=== PATIENT | female | born 1960 | race Caucasian/White ===

== ENCOUNTER 2019-06-13 15:15 | Emergency (ER) | payer MEDICAID, OTHER, SELFPAY ==
[~2019-06-13] VITALS: Ht 170.2 cm; Wt 66.4 kg
--- NOTE | 2019-06-13 15:50 | NUR ---
PT WHEELED TO ED ROOM 01 FROM LOBBY AT THIS TIME.
--- NOTE | 2019-06-13 17:00 | NUR ---
PT RESTING IN BED. NAD. VSS.
[2019-06-13] MEDS ORDERED: MAGNESIUM CITRATE 300ML ORAL SOL ONE (17:29)
[2019-06-13] MEDS ORDERED: MAGNESIUM CITRATE 300ML ORAL SOL PO ONE (17:30)
[2019-06-13 17:40] LABS: BASOPHILS # (AUTO) 0.02 x10^3/uL (0-0.1); BASOPHILS % (AUTO) 0 % (0-1); EOSINOPHILS # (AUTO) 0.16 x10^3/uL (0-0.4); EOSINOPHILS % (AUTO) 2 % (1-7); LYMPHOCYTES # (AUTO) 1.81 x10^3/uL (1-3.4); LYMPHOCYTES % (AUTO) 18 % (22-44); MD NO; MEAN CORPUSCULAR HEMOGLOBIN 29.5 pg (27.0-34.8); MEAN CORPUSCULAR HGB CONC 32.6 g/dL (32.4-35.8); MEAN CORPUSCULAR VOLUME 90.7 fL (80-100); MEAN PLATELET VOLUME 8.5 fL (7.4-10.4); MONOCYTES # (AUTO) 1.16 x10^3/uL (0.2-0.8); MONOCYTES % (AUTO) 12 % (2-9); NEUTROPHILS % (AUTO) 69 % (42-75); PLATELET COUNT 240 x10^3/uL (130-400); RED BLOOD COUNT 4.68 x10^6/uL (3.82-5.3); RED CELL DISTRIBUTION WIDTH 13.4 % (9.6-15.2)
[2019-06-13 17:46] LABS: ALANINE AMINOTRANSFERASE 23 U/L (12-78); ALBUMIN 2.9 g/dL (3.4-5.0); ANION GAP 6 mmol/L (5-15); CALCIUM 8.5 mg/dL (8.5-10.1); CHLORIDE 105 mmol/L (98-107)
[2019-06-13 17:48] LABS: ALKALINE PHOSPHATASE 84 U/L (45-117); BILIRUBIN,TOTAL 0.3 mg/dL (0.2-1.0); TOTAL PROTEIN 7.2 g/dL (6.4-8.2)
--- NOTE | 2019-06-13 17:57 | NUR ---
PT GIVEN [facility] AND SHOWN WHERE THE RESTROOM IS LOCATED. VSS. NAD. FRIEND WAS AT BEDSIDE BUT STEPPED OUT FOR A FEW MINUTES.
--- NOTE | 2019-06-13 18:36 | NUR ---
PT REPORTS SHE HAS NOT HAD A BM FROM THE [facility]. PT DOESN'T FEEL THE URGE TO GO TO THE BATHROOM AT THIS TIME. VSS. NAD. PT IS DOZING INTERMITTENTLY.
[2019-06-13] MEDS ORDERED: IBUPROFEN 600 MG TABLET PO ONE (19:00)
--- NOTE | 2019-06-13 19:11 | NUR ---
REPORT GIVEN TO PM NURSE.
--- NOTE | 2019-06-13 19:14 | NUR ---
Assumed care of pt, bedside report recieved, pt back from CT, resting on gurney, awake, alert, vitals stable. Waiting for results.
[2019-06-13] MEDS ORDERED: CEFTRIAXONE PMX 1GM/50ML 50 ML IVPB ONE (19:30)
[2019-06-13] MEDS ORDERED: CEFTRIAXONE PMX 1GM/50ML 50 ML ONE (19:30)
[2019-06-13] MEDS ORDERED: IBUPROFEN 600 MG TABLET ONE (19:31)
--- NOTE | 2019-06-13 19:41 | NUR ---
Pt medicated for pain, [place] 07/07, tolerates wll, IV abx infusing. Vitals stable.
[2019-06-13] MEDS ORDERED: SODIUM CHLORIDE 0.9% 1,000ML IVBOLUS ONE (20:00)
--- NOTE | 2019-06-13 20:37 | NUR ---
Pt resting on gurney, states pain improved to 5/10, nausea eresolved, cramps to BLQ states "I think I might need to poop soon", IV fluids complete.
[2019-06-13 20:38] VITALS: BP 144/88
--- NOTE | 2019-06-13 20:46 | NUR ---
Provider at bedside, pt to d/c home w/ abx. PIV removed, waiting for paperwork.
== END 2019-06-13 21:07 | disposition home or self-care (01) ==
LOC: ED 18:13
DX: J18.9 Pneumonia, unspecified organism (principal); F17.200 Nicotine dependence, unspecified, uncomplicated
CPT/HCPCS: 36415; 71045; 74021; 74176; 80053; 83605; 85025; 96365; 99284; J0696; J7030

== ENCOUNTER 2021-03-13 18:52 | Emergency (ER) | payer MEDICAID ==
[~2021-03-13] VITALS: Ht 170.2 cm; Wt 70.0 kg
[2021-03-13 20:00] LABS: BASOPHILS % (AUTO) 1 % (0-1); EOSINOPHILS % (AUTO) 2 % (1-7); LYMPHOCYTES % (AUTO) 53 % (22-44); MEAN CORPUSCULAR HEMOGLOBIN 28.9 pg (27.0-34.8); MEAN CORPUSCULAR HGB CONC 33.6 g/dL (32.4-35.8); MONOCYTES % (AUTO) 12 % (2-9); NEUTROPHILS % (AUTO) 32 % (42-75); PLATELET COUNT 208 x10^3/uL (130-400); RED CELL DISTRIBUTION WIDTH 13.9 % (9.6-15.2)
[2021-03-13] MEDS ORDERED: ONDANSETRON 2MG/ML, 2ML IVPush ONE (20:00)
[2021-03-13] MEDS ORDERED: SODIUM CHLORIDE 0.9% 1,000ML IVBOLUS ONE (20:00)
[2021-03-13 20:06] LABS: MD NO
[2021-03-13 20:12] LABS: ALBUMIN 3.4 g/dL (3.4-5.0); ANION GAP 5 mmol/L (5-15); CALCIUM 8.3 mg/dL (8.5-10.1); CHLORIDE 109 mmol/L (98-107); CREATININE 0.95 mg/dL (0.55-1.02)
[2021-03-13 20:38] LABS: FREE T4 (FREE THYROXINE) 0.45 ng/dL (0.76-1.46)
--- NOTE | 2021-03-13 20:38 | NUR ---
liter ns complete. pt ambulated to restroom with a steady gait and no difficulty. made aware.
[2021-03-13 20:40] VITALS: BP 168/99
== END 2021-03-13 21:32 | disposition home or self-care (01) ==
LOC: ED 21:15
DX: R55 Syncope and collapse (principal); E86.0 Dehydration; R11.0 Nausea; E03.9 Hypothyroidism, unspecified
CPT/HCPCS: 36415; 80048; 82040; 84439; 84443; 85025; 93005; 96360; 99284; J7030